=== PATIENT | male | born 1960 | race Two or more races ===

== ENCOUNTER 2021-07-04 19:01 | Emergency (ER) | payer MEDICAID, OTHER ==
[~2021-07-04] VITALS: Ht 162.6 cm; Wt 79.4 kg
[2021-07-04 19:06] VITALS: BP 172/102
[2021-07-04 21:30] LABS: Basophils # (auto) 0 10 ^3/uL (0-0.2); Basophils % (auto) 0.4 % (0.0-2.0); Eosinophils # (auto) 0.3 10 ^3/uL (0-0.8); Eosinophils % (auto) 5.5 % (0.0-7.0); Hematocrit 35.9 % (41.0-53.0); Hemoglobin 12.5 g/dL (13.5-17.5); Lymphocytes # (auto) 1.4 10 ^3/uL (0.4-5.4); Lymphocytes % (auto) 22.8 % (10.0-50.0); Mean Corpuscular Hemoglobin 29.3 pg (28.0-32.0); Mean Corpuscular Hgb Conc. 34.9 g/dL (32.0-36.0); Mean Corpuscular Volume 84.1 fL (80.0-100.0); Monocytes # (auto) 0.5 10 ^3/uL (0-1.3); Monocytes % (auto) 8.9 % (0.0-12.0); Neutrophils # (auto) 3.7 10 ^3/uL (1.6-8.6); Neutrophils % (auto) 62.4 % (37.0-80.0); Red Blood Cells 4.27 10^6/uL (4.5-5.90); Red Cell Distribution Width 14.5 % (11.8-14.3)
[2021-07-04 21:50] LABS: Albumin 3.5 g/dL (3.4-5.0); Anion Gap 5 (5-15); Blood Urea Nitrogen 15 mg/dL (7-18); Calcium 8.4 mg/dL (8.5-10.1); Carbon Dioxide 27 mmol/L (21-32); Chloride 106 mmol/L (98-107); Glucose 97 mg/dL (74-106); Magnesium 2.7 mg/dL (1.6-2.6); Potassium 3.3 mmol/L (3.5-5.1); Sodium 138 mmol/L (136-145)
[2021-07-04 21:57] LABS: Alanine Aminotransferase 50 U/L (16-61); Alkaline Phosphatase 81 U/L (45-117); Aspartate Aminotransferase 34 U/L (15-37); BUN/Creatinine Ratio 13.2; Bilirubin, Total 0.7 mg/dL (0.2-1.0); GFR African American 84 mL/min; GFR Non-African American 69 mL/min; Total Protein 7.9 g/dL (6.4-8.2)
[2021-07-04 21:59] LABS: INR 1.06 (0.9-1.15)
== END 2021-07-05 00:19 | disposition left against medical advice (07) ==
LOC: ER 19:03
DX: R06.02 Shortness of breath (principal); R05 Cough; Z53.21 Procedure and treatment not carried out due to patient leaving prior to being seen by health care provider
CPT/HCPCS: 36415; 71045; 80053; 82728; 83605; 83615; 83735; 83880; 84484; 85025; 85610